=== PATIENT | female | born 1955 | race Caucasian/White ===

== ENCOUNTER 2023-02-04 19:58 | Emergency (ER) | payer MEDICARE, MEDICAID, SELFPAY ==
[2023-02-04] VITALS (24 sets, daily range): BP systolic 125–154; BP diastolic 80–84; PULSE 54–77; RESP 16–30; TEMP 36.5; O2SAT 90–97; BMI 39.4
--- NOTE | 2023-02-04 20:13 | ED.AMS1 ---
HPI - Altered Mental Status General Chief Complaint: Altered Mental Status Stated Complaint: ALTERED MENTAL STATUS Time Seen by Provider: 02/04/23 20:12 Source: patient Mode of arrival: ambulance Related Data Allergies Allergy/AdvReac Type Severity Reaction Status Date / Time No Known Drug Allergies Allergy Verified 02/04/23 20:01 Exam Constitutional Vital Signs - 24 hr 02/04/23 20:01 Temperature 97.7 F Pulse Rate [Monitor] 74 Respiratory Rate 26 H Blood Pressure [Left Arm] 125/84 H Pulse Oximetry 97 Oxygen Delivery Method Nasal Cannula Oxygen Delivery Flow Rate 2 Course Vital Signs Vital signs: Vital Signs Temperature 97.7 F 02/04/23 20:01 Pulse Rate 74 02/04/23 20:01 Respiratory Rate 26 H 02/04/23 20:01 Blood Pressure 125/84 H 02/04/23 20:01 Pulse Oximetry 97 02/04/23 20:01 Oxygen Delivery Method Nasal Cannula 02/04/23 20:01 Oxygen Delivery Flow Rate 2 02/04/23 20:01 Temperature 97.7 F 02/04/23 20:01 Pulse Rate 74 02/04/23 20:01 Respiratory Rate 26 H 02/04/23 20:01 Blood Pressure 125/84 H 02/04/23 20:01 Pulse Oximetry 97 02/04/23 20:01 Oxygen Delivery Method Nasal Cannula 02/04/23 20:01 Oxygen Delivery Flow Rate 2 02/04/23 20:01 Discharge Plan Discharge Chief Complaint: Altered Mental Status Referrals: Aj Vyas MD [Primary Care Provider] - 1 week
--- NOTE | 2023-02-04 20:19 | ECG_ITS ---
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
--- NOTE | 2023-02-04 20:19 | XR_ITS ---
The [address] [address] Patient Name: JELENA RAMIREZ MRN: [id number] date: 1955 Sex: F Assigned Patient Location: ER Current Patient Location: ED.MAIN Accession/Order Number: [id number] Exam Date: 02/04/2023 20:50 Report Date: 02/04/2023 22:30 At the request of: BRYN SAPP Procedure: XR chest 1V EXAM: XR chest 1V REASON FOR EXAM: Female, 67 years, Cough. TECHNIQUE: A single AP view of the chest is performed. COMPARISON: 11/10/2022. FINDINGS: Cardiac monitoring leads project over the chest. The lungs are expanded and clear. Normal pleura. Normal size heart. Normal mediastinum and jeet. Normal visualized pulmonary arteries. Normal visualized aortic arch and descending thoracic aorta. Normal visualized thoracic spine. Normal visualized ribs, clavicles, and shoulders. There is no demonstrated abnormality of the visualized soft tissue structures of the upper abdomen. IMPRESSION: Normal examination of the chest. Electronically authenticated by: GRISEL DURON Date: 02/04/2023 22:30
--- NOTE | 2023-02-04 20:24 | PC.NURSE ---
Addendum entered by Tiffany Tran 02/04/23 20:29: Patient states she has been sleeping all day, when asked if this is normal for her she states it is sometimes, she has been tired lately. patient states she was just at her neighbors [facility] recently and that she has seen her neighbors. Original Note: patients neighbor called PD for wellness check on patient. states he had not seen the patient in a few days. EMS reports patient was A&o x3 only. Patient arrived at ED. patient able to state: name, birthday, todays date and year, president without assistance. patient able to ambulate don her own. Patient states she did not want to come to ED but was persuaded by EMS. Patient denies pain. states she does live alone, patient denies needs at this time. physician aware. no deficits noticed at this time.
--- NOTE | 2023-02-04 20:33 | PC.NURSE ---
patient states she has COPD. wears 2 liters at home. patient was 89 and labored on room air. O2 initiated physician aware
--- NOTE | 2023-02-04 20:35 | PC.NURSE ---
patient states she does do home breathing treatments at times. patient has frequent cough, states she feels like she is short of breath at times. patient moved to high fowlers position. physician notified, asked if patient could have breathing treatment, patient has bilater diminished lung sounds with expiratory wheezes, states when she was set to high fowlers she was breathing a little easier
[2023-02-04 20:45] LABS: ABG PCO2 40.7 mmHg (35.0-45.0); Allen Test POSITIVE (POSITIVE); Base Excess ABG 2.6 mmol/L (-2.0-2.0); HCO3 ABG 26.9 mmol/L (22.0-26.0); Oxygen Saturation ABG 96.2 %; PO2 ABG 94.9 mmHg (80.0-100.0); pH ABG 7.429 (7.350-7.450)
[2023-02-04 20:46] LABS: Fractionated Inspired Oxygen 28 %; Liters per Minute 2; O2 Mode NASAL CANNULA; Puncture Site LR
[2023-02-04] MEDS: IPRATROPIUM/ALBUTEROL SULFATE 3 ML AMPUL.NEB IH (20:50)
[2023-02-04 20:57] LABS: Basophils Percent Auto 0.5 % (0.2-2.0); Eosinophils Absolute Auto 0.2 10^3/uL (0.0-0.7); Eosinophils Percent Auto 2.4 % (0.9-7.0); Hemoglobin 13.5 g/dL (12.0-16.0); Immature Granulocytes Abs Auto 0.03 10^3/uL (0.00-0.03); Immature Granulocytes Pct Auto 0.4 % (0.0-0.5); Lymphocytes Absolute Auto 2.3 10^3/uL (1.2-3.8); Lymphocytes Percent Auto 27.8 % (20.5-60.0); Mean Corpuscular HGB Conc 32.9 g/dL (29.9-35.2); Mean Corpuscular Hemoglobin 29.5 pg (26.7-34.0); Mean Corpuscular Volume 89.5 fL (81.0-99.0); Mean Platelet Volume 10.2 fL (9.5-13.5); Monocytes Absolute Auto 0.7 10^3/uL (0.3-0.8); Monocytes Percent Auto 7.7 % (1.7-12.0); Neutrophils Absolute Auto 5.2 10^3/uL (1.4-6.5); Neutrophils Percent Auto 61.2 % (43.0-75.0); Platelet Count 293 10^3/uL (150-450); Red Blood Count 4.58 10^6/uL (4.20-5.40); Red Cell Distribution Width 13.6 % (11.0-15.0); White Blood Count 8.4 10^3/uL (4.0-11.0)
[2023-02-04 21:09] LABS: Alanine Aminotransferase 30 U/L (14-59); Albumin Globulin Ratio 0.8; Albumin Level 3.2 g/dL (3.4-5.0); Alkaline Phosphatase 102 U/L (46-116); Anion Gap 12.3; Aspartate Amino Transferase 21 U/L (15-37); BUN Creatinine Ratio 9.7; Bilirubin Total 0.6 mg/dL (0.2-1.0); Calcium 8.9 mg/dL (8.5-10.1); Carbon Dioxide 26.8 mmol/L (21.0-32.0); Chloride 105 mmol/L (98-107); Estimated GFR (African America >60 (>=60); Estimated GFR (Non-African Ame >60 (>=60); Globulin 3.9 g/dL; Glucose 107 mg/dL (74-106); Potassium 3.1 mmol/L (3.5-5.1); Sodium 141 mmol/L (136-145); Total Protein 7.1 g/dL (6.4-8.2)
[2023-02-04] MEDS: METHYLPREDNISOLONE SOD SUCC PF 125 MG/2 ML VIAL IVP (21:14)
--- NOTE | 2023-02-04 22:50 | ED.AMS1 ---
HPI - Altered Mental Status General Chief Complaint: Altered Mental Status Stated Complaint: ALTERED MENTAL STATUS Time Seen by Provider: 02/04/23 20:12 Source: patient Mode of arrival: ambulance History of Present Illness HPI narrative: the patient is calm by the EMS after her neighbor called the ambulance because the patient did not show up for the last few days, was presented to patient house she did not have any complaint but they brought her to the Emergency Room for evaluation she does have a history of cough and she also have a history of chronic obstructive pulmonary disease, the cough is productive of whitish sputum The patient denies any chest pain nausea vomiting or any other complaints and she also denies any difficulty breathing Review of systems otherwise negative Related Data Allergies Allergy/AdvReac Type Severity Reaction Status Date / Time No Known Drug Allergies Allergy Verified 02/04/23 20:01 Review of Systems ROS Status of ROS 10 or more systems reviewed and unremarkable except as noted in history and below Exam Narrative Exam Narrative: Nurses notes and vital signs reviewed and patient is not hypoxic. General: Well-appearing and in no apparent distress. Skin: Warm, dry, no pallor noted. No rash. Head: Normocephalic, atraumatic. Neck: Supple, non-tender. Eye: Pupils are equal, round and EOMI. No scleral icterus. Ears, Nose, Mouth, and Throat: TM are clear, no nasal mucosal hypertrophy. Oral mucosa is moist, no posterior oropharynx erythema, uvula is mid-line Cardiovascular: Regular Rate and Rhythm without murmur, gallop or rub. Respiratory: No accessory muscle use or respiratory distress. Lungs decrease air entry into the bases no wheezes no rhonchi Chest Wall: no tenderness Back: No midline thoracic or lumbar vertebral tenderness. No CVA tenderness Musculoskeletal: normal ROM, no calf or popliteal tenderness, no lower extremity edema/swelling GI: Abdomen is soft, non-distended. Normal bowel sounds. No masses appreciated. No tenderness to palpation. No rebound, guarding, or rigidity noted. Neurological: A&O x4. No cranial nerve dysfunction observed. No truncal ataxia. Moves all extremities. Sensation intact. Psychiatric: Cooperative and interactive. Normal mood and affect. Constitutional Vital Signs - 24 hr 02/04/23 20:01 02/04/23 20:22 02/04/23 20:50 Temperature 97.7 F Pulse Rate Pulse Rate [Monitor] 74 75 Respiratory Rate 26 H 22 Blood Pressure Blood Pressure [Left Arm] 125/84 H Pulse Oximetry 97 96 95 Oxygen Delivery Method Nasal Cannula Nasal Cannula Nasal Cannula Oxygen Delivery Flow Rate 2 2 2 02/04/23 20:05 02/04/23 20:12 02/04/23 20:20 Temperature Pulse Rate 71 74 Pulse Rate [Monitor] Respiratory Rate 18 Blood Pressure Blood Pressure [Left Arm] Pulse Oximetry 96 95 90 L Oxygen Delivery Method Oxygen Delivery Flow Rate 02/04/23 20:30 02/04/23 20:40 02/04/23 20:50 Temperature Pulse Rate 75 69 74 Pulse Rate [Monitor] Respiratory Rate 21 19 16 Blood Pressure Blood Pressure [Left Arm] Pulse Oximetry 96 96 Oxygen Delivery Method Oxygen Delivery Flow Rate 02/04/23 21:00 02/04/23 21:10 02/04/23 21:20 Temperature Pulse Rate 76 75 73 Pulse Rate [Monitor] Respiratory Rate 16 28 H 21 Blood Pressure Blood Pressure [Left Arm] Pulse Oximetry 97 95 Oxygen Delivery Method Oxygen Delivery Flow Rate 02/04/23 21:30 02/04/23 21:40 02/04/23 21:50 Temperature Pulse Rate 71 67 68 Pulse Rate [Monitor] Respiratory Rate 18 18 19 Blood Pressure Blood Pressure [Left Arm] Pulse Oximetry Oxygen Delivery Method Oxygen Delivery Flow Rate 02/04/23 23:21 02/04/23 22:00 02/04/23 22:10 Temperature Pulse Rate 68 65 Pulse Rate [Monitor] Respiratory Rate 18 30 H Blood Pressure Blood Pressure [Left Arm] Pulse Oximetry 92 L Oxygen Delivery Method Room Air Oxygen Delivery Flow Rate 02/04/23 22:20 02/04/23 22:30 02/04/23 22:40 Temperature Pulse Rate 74 63 68 Pulse Rate [Monitor] Respiratory Rate 17 27 H 17 Blood Pressure Blood Pressure [Left Arm] Pulse Oximetry Oxygen Delivery Method Oxygen Delivery Flow Rate 02/04/23 22:50 02/04/23 23:00 02/04/23 23:04 Temperature Pulse Rate 66 77 69 Pulse Rate [Monitor] Respiratory Rate 19 19 16 Blood Pressure Blood Pressure [Left Arm] Pulse Oximetry Oxygen Delivery Method Oxygen Delivery Flow Rate 02/04/23 23:07 Temperature Pulse Rate Pulse Rate [Monitor] Respiratory Rate Blood Pressure 154/80 H Blood Pressure [Left Arm] Pulse Oximetry Oxygen Delivery Method Oxygen Delivery Flow Rate Course Vital Signs Vital signs: Vital Signs Temperature 97.7 F 02/04/23 20:01 Pulse Rate 74 02/04/23 20:01 Respiratory Rate 26 H 02/04/23 20:01 Blood Pressure 125/84 H 02/04/23 20:01 Pulse Oximetry 97 02/04/23 20:01 Oxygen Delivery Method Nasal Cannula 02/04/23 20:01 Oxygen Delivery Flow Rate 2 02/04/23 20:01 Temperature 97.7 F 02/04/23 20:01 Pulse Rate 69 02/04/23 23:04 Respiratory Rate 16 02/04/23 23:04 Blood Pressure 154/80 H 02/04/23 23:07 Pulse Oximetry 92 L 02/04/23 23:21 Oxygen Delivery Method Room Air 02/04/23 23:21 Oxygen Delivery Flow Rate 2 02/04/23 20:50 MDM - Altered Mental Status MDM Narrative Medical decision making narrative: the patient she did not have any complaint upon presentation except for the cough she was oriented ?3 able to give us full history and denies any complaint except for the cough Chest x-ray showed no acute pathology and the CBC and chemistry were within normal she had a baseline chronic obstructive pulmonary disease and uses oxygen 2 L old time she also had ABG that shows adequate results The patient EKG was showing sinus rhythm with a heart rate of seventy-[address] elevation or depression The patient discharged home with a chronic obstructive pulmonary disease exacerbation bronchitis management of prednisone in addition to continuing her treatment The patient is to followup with primary care physician in next 2-3 days or to return to the emergency department should any of the signs or symptoms worsen or new symptoms develop. The patient agrees with the following Diagnosis and Treatment plan and the patient will be discharged home. Lab Data Labs: Lab Results 02/04/23 02/04/23 Range/Units 20:40 20:48 WBC 8.4 (4.0-11.0) 10^3/uL RBC 4.58 (4.20-5.40) 10^6/uL Hgb 13.5 (12.0-16.0) g/dL Hct 41.0 (36.0-48.0) % MCV 89.5 (81.0-99.0) fL MCH 29.5 (26.7-34.0) pg MCHC 32.9 (29.9-35.2) g/dL RDW 13.6 (11.0-15.0) % Plt Count 293 (150-450) 10^3/uL MPV 10.2 (9.5-13.5) fL Neut % (Auto) 61.2 (43.0-75.0) % Lymph % (Auto) 27.8 (20.5-60.0) % [place] % (Auto) 7.7 (1.7-12.0) % Eos % (Auto) 2.4 (0.9-7.0) % Baso % (Auto) 0.5 (0.2-2.0) % Neut # (Auto) 5.2 (1.4-6.5) 10^3/uL Lymph # (Auto) 2.3 (1.2-3.8) 10^3/uL [place] # (Auto) 0.7 (0.3-0.8) 10^3/uL Eos # (Auto) 0.2 (0.0-0.7) 10^3/uL Baso # (Auto) 0.0 (0.0-0.1) 10^3/uL Abs Immat Gran (auto) 0.03 (0.00-0.03) 10^3/uL Imm/Tot Granulo (auto) 0.4 (0.0-0.5) % Puncture Site Lr ABG pH 7.429 (7.350-7.450) ABG pCO2 40.7 (35.0-45.0) mmHg ABG pO2 94.9 (80.0-100.0) mmHg ABG HCO3 26.9 H (22.0-26.0) mmol/L ABG O2 Saturation 96.2 % ABG Base Excess 2.6 H (-2.0-2.0) mmol/L Dougie Test Positive (POSITIVE) O2 Liters/Min 2 FiO2 28 % Sodium 141 (136-145) mmol/L Potassium 3.1 L (3.5-5.1) mmol/L Chloride 105 (98-107) mmol/L Carbon Dioxide 26.8 (21.0-32.0) mmol/L Anion Gap 12.3 BUN 7.0 (7.0-18.0) mg/dL Creatinine 0.72 (0.55-1.02) mg/dL Est GFR ( Amer) >60 (>=60) Est GFR (Non-Af Amer) >60 (>=60) BUN/Creatinine Ratio 9.7 Glucose 107 H (74-106) mg/dL Calcium 8.9 (8.5-10.1) mg/dL Total Bilirubin 0.6 (0.2-1.0) mg/dL AST 21 (15-37) U/L ALT 30 (14-59) U/L Alkaline Phosphatase 102 (46-116) U/L Total Protein 7.1 (6.4-8.2) g/dL Albumin 3.2 L (3.4-5.0) g/dL Globulin 3.9 g/dL Albumin/Globulin Ratio 0.8 Discharge Plan Discharge Chief Complaint: Altered Mental Status Clinical Impression: Acute exacerbation of chronic obstructive pulmonary disease, Bronchitis Patient Disposition: Home, Self-Care Condition: Good Mode of Transportation: Private Vehicle Instructions: Hypokalemia (ED), Acute Bronchitis (ED), COPD (Chronic Obstructive Pulmonary Disease) (ED) Stand Alone Forms: Portal Instructions Referrals: Aj Vyas MD [Primary Care Provider] - 1 week Discharge Date/Time: 02/04/23 23:31
--- NOTE | 2023-02-04 23:21 | PC.NURSE ---
unknown when patient discontinued her own o2. patient states she was feeling better since recieving breathing treatment. states she only uses O2 at home when she needs it. no longer labored
[2023-02-04] MEDS: POTASSIUM CHLORIDE 10 MEQ ER TABLET 40 MEQ PO (23:28)
--- NOTE | 2023-03-28 12:55 | PC.NURSE ---
[facility] CALLED TO CLARIFY PRESCRIPTION STRENGTH OF PREDNISONE WRITTEN FROM JANUARY 2023. DR SAPP IS NOT PRESENT TODAY, UNABLE TO FIND STRENGTH IN DOCUMENTATION.CLARIFIED WITH DR QUIROZ, TO CANCEL PRESCRIPTION AND FOLLOW UP WITH PRIMARY DOCTOR. PT WAS BEING TREATED FOR BRONCHITIS AT THE TIME (JANUARY).
== END 2023-02-04 23:31 | disposition home or self-care (01) ==
PROVIDERS: Emergency Provider Emergency Medicine; PCP Family Medicine
DX: J44.1 Chronic obstructive pulmonary disease with (acute) exacerbation (principal)
CPT/HCPCS: 36415; 36600; 71045; 80053; 81003; 82805; 85025; 93005; 94640; 96374; 99285; J2930

== ENCOUNTER 2023-04-26 11:40 | Emergency (ER) | payer MEDICARE, MEDICAID, SELFPAY ==
[2023-04-26] VITALS (23 sets, daily range): BP systolic 112; BP diastolic 70; PULSE 60–98; RESP 15–26; O2SAT 93–98; BMI 43.3
--- NOTE | 2023-04-26 12:01 | ECG_ITS ---
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
--- NOTE | 2023-04-26 12:02 | XR_ITS ---
The [address] [address] Patient Name: JELENA RAMIREZ MRN: [id number] date: 1955 Sex: F Assigned Patient Location: ER Current Patient Location: ER Accession/Order Number: [id number] Exam Date: 04/26/2023 13:20 Report Date: 04/26/2023 15:00 At the request of: BRYN SAPP Procedure: XR chest 1V EXAMINATION: XR chest 1V 04/26/2023 11:58 AM PDT HISTORY: cp TECHNIQUE: Single frontal view of the chest acquired. COMPARISONS: Chest x-ray 02/04/2023. FINDINGS: Lines/tubes/other: None. Heart and mediastinum: The heart and the mediastinum are within normal limits for technique. Bones: No acute osseous abnormality. Lungs: The lungs are clear. There is no evidence of pneumonia or pulmonary edema. Pleura: There is no significant pleural effusion or pneumothorax. Other: None. XR/XR chest 1V IMPRESSION: No acute cardiopulmonary abnormality. Electronically authenticated by: RUBEN STONE Date: 04/26/2023 15:00
--- NOTE | 2023-04-26 12:11 | ED_ITS ---
HPI - General Adult General Chief complaint: Overdose Stated complaint: OVERDOSE Time Seen by Provider: 04/26/23 12:01 Mode of arrival: ambulance History of Present Illness HPI narrative: The patient presented to us by the EMS after her neighbor was concerned that she may be has been taking her anxiety medication with that she need to take, the patient went seen by the EMS she was awake no decreased level of consciousness, the patient oriented x3 , and the patient denying overdosing on her medication she mentioned that she only take her Xanax as prescribed 3 times a day The patient initially mentioned having some chest pain although after a while in the ER she denied it and she did not want to give any more details. No nausea no vomiting the difficulty breathing and the patient does not want to be in the ER Related Data Home Medications Medication Instructions Recorded Confirmed alprazolam 0.5 mg tablet 0.5 mg PO TID PRN anxiety 04/26/23 04/26/23 amiodarone 200 mg tablet 200 mg PO DAILY 04/26/23 04/26/23 apixaban 5 mg tablet (Eliquis) 5 mg PO BID 04/26/23 04/26/23 atorvastatin 40 mg tablet 40 mg PO QPM 04/26/23 04/26/23 buspirone 30 mg tablet 30 mg PO BID 04/26/23 04/26/23 cholestyramine (with sugar) 4 gram 1 ea PO BID 04/26/23 04/26/23 powder for susp in a packet diphenoxylate-atropine 2.5 1 tab PO Q6H PRN diarrhea 04/26/23 04/26/23 mg-0.025 mg tablet famotidine 20 mg tablet 20 mg PO QPM 04/26/23 04/26/23 furosemide 20 mg tablet 20 mg PO DAILY PRN edema 04/26/23 04/26/23 insulin glargine 100 unit/mL (3 5 unit subcut QPM 04/26/23 04/26/23 mL) subcutaneous pen (Lantus Solostar U-100 Insulin) levothyroxine 50 mcg tablet 50 mcg PO DAILY 04/26/23 04/26/23 metoprolol tartrate 25 mg tablet 25 mg PO BID 04/26/23 04/26/23 paroxetine HCl 30 mg tablet 30 mg PO DAILY 04/26/23 04/26/23 potassium chloride 20 mEq 20 meq PO BID 04/26/23 04/26/23 tablet,extended release(part/cryst) pregabalin 100 mg capsule 100 mg PO BID 04/26/23 04/26/23 quetiapine 100 mg tablet 100 mg PO QPM 04/26/23 04/26/23 sucralfate 1 gram tablet 1 g PO Q6H 04/26/23 04/26/23 tizanidine 4 mg tablet 4 mg PO Q8H PRN muscle spasticity 04/26/23 04/26/23 trazodone 100 mg tablet 100 mg PO QPM 04/26/23 04/26/23 Previous Rx's Medication Instructions Recorded prednisone 50 mg tablet 50 mg PO DAILY 3 days #3 tabs 04/26/23 Allergies Allergy/AdvReac Type Severity Reaction Status Date / Time No Known Drug Allergies Allergy Verified 02/04/23 20:01 Review of Systems ROS Status of ROS 10 or more systems reviewed and unremarkable except as noted in history and below [facility] Medical History (Updated 04/26/23 @ 15:16 by Kylah Pham MD) Exam Narrative Exam Narrative: Nurses notes and vital signs reviewed and patient is not hypoxic. General: Well-appearing and in no apparent distress. Skin: Warm, dry, no pallor noted. No rash. Head: Normocephalic, atraumatic. Neck: Supple, non-tender. Eye: Pupils are equal, round and EOMI. No scleral icterus. Ears, Nose, Mouth, and Throat: TM are clear, no nasal mucosal hypertrophy. Oral mucosa is moist, no posterior oropharynx erythema, uvula is mid-line Cardiovascular: Regular Rate and Rhythm without murmur, gallop or rub. Respiratory: No accessory muscle use or respiratory distress. Lungs are clear to auscultation, no wheezing, rales or rhonchi Chest Wall: no tenderness Back: No midline thoracic or lumbar vertebral tenderness. No CVA tenderness Musculoskeletal: normal ROM, no calf or popliteal tenderness, no lower extremity edema/swelling GI: Abdomen is soft, non-distended. Normal bowel sounds. No masses appreciated. No tenderness to palpation. No rebound, guarding, or rigidity noted. Neurological: A&O x4. No cranial nerve dysfunction observed. No truncal ataxia. Moves all extremities. Sensation intact. Psychiatric: Cooperative and interactive. Normal mood and affect. Constitutional Vital Signs, click to edit/add: Last Vital Signs Pulse 62 04/26/23 14:40 Resp 25 H 04/26/23 12:30 BP 112/70 04/26/23 11:45 Pulse Ox 95 04/26/23 12:30 O2 Del Method Room Air 04/26/23 12:03 Course Vital Signs Vital signs: Vital Signs Pulse Rate 74 04/26/23 11:45 Respiratory Rate 20 04/26/23 11:45 Blood Pressure 112/70 04/26/23 11:45 Pulse Oximetry 97 04/26/23 11:45 Oxygen Delivery Method Room Air 04/26/23 11:45 Pulse Rate 62 04/26/23 14:40 Respiratory Rate 25 H 04/26/23 12:30 Blood Pressure 112/70 04/26/23 11:45 Pulse Oximetry 95 04/26/23 12:30 Oxygen Delivery Method Room Air 04/26/23 12:03 Medical Decision Making MDM Narrative Medical decision making narrative: The patient EKG upon presentation showing sinus rhythm with a heart rate of [address] elevation or depression The patient denies being suicidal or homicidal or any intention to harm herself she mentioned that she only took the medication as prescribed. The patient right this moment is not sedated and giving a full history The patient chest x-ray showed no acute pathology her blood work-up showed some acute kidney injury and I did speak with her that she need to be hydrated well, this is the second time the patient comes to us because his and her neighbor was worried The patient also had mild elevation of the liver enzymes that need to follow-up with her primary care doctor as outpatient The patient was provided with 1 breathing treatment in the ER as supportive care, no new symptoms of cough or difficulty breathing and she was denying any chest pain. I did notice that the patient cough was significant I did provide her with prednisone in addition to continue her breathing treatment The patient is to follow up with primary care physician in next 2-3 days or to return to the emergency department should any of the signs or symptoms worsen or new symptoms develop. The patient agrees with the following Diagnosis and Treatment plan and the patient will be discharged home. The patient also was instructed about the importance of not taking her medication for anxiety when she is asleep to avoid side effects Lab Data Labs: Lab Results 04/26/23 04/26/23 Range/Units 12:23 13:10 WBC 6.5 (4.0-11.0) 10^3/uL RBC 4.59 (4.20-5.40) 10^6/uL Hgb 14.1 (12.0-16.0) g/dL Hct 44.0 (36.0-48.0) % MCV 95.9 (81.0-99.0) fL MCH 30.7 (26.7-34.0) pg MCHC 32.0 (29.9-35.2) g/dL RDW 14.9 (11.0-15.0) % Plt Count 248 (150-450) 10^3/uL MPV 10.2 (9.5-13.5) fL Neut % (Auto) 77.4 H (43.0-75.0) % Lymph % (Auto) 14.9 L (20.5-60.0) % [place] % (Auto) 6.7 (1.7-12.0) % Eos % (Auto) 0.2 L (0.9-7.0) % Baso % (Auto) 0.5 (0.2-2.0) % Neut # (Auto) 5.0 (1.4-6.5) 10^3/uL Lymph # (Auto) 1.0 L (1.2-3.8) 10^3/uL [place] # (Auto) 0.4 (0.3-0.8) 10^3/uL Eos # (Auto) 0.0 (0.0-0.7) 10^3/uL Baso # (Auto) 0.0 (0.0-0.1) 10^3/uL Abs Immat Gran (auto) 0.02 (0.00-0.03) 10^3/uL Imm/Tot Granulo (auto) 0.3 (0.0-0.5) % PT 10.3 (9.0-11.6) sec INR 0.97 Sodium 141 (136-145) mmol/L Potassium 3.3 L (3.5-5.1) mmol/L Chloride 104 (98-107) mmol/L Carbon Dioxide 31.2 (21.0-32.0) mmol/L Anion Gap 9.1 BUN 13.0 (7.0-18.0) mg/dL Creatinine 1.96 H (0.55-1.02) mg/dL Est GFR ( Amer) 31 L (>=60) Est GFR (Non-Af Amer) 26 L (>=60) BUN/Creatinine Ratio 6.6 Glucose 129 H (74-106) mg/dL Calcium 8.7 (8.5-10.1) mg/dL Total Bilirubin 0.7 (0.2-1.0) mg/dL AST 174 H (15-37) U/L ALT 208 H (14-59) U/L Alkaline Phosphatase 177 H (46-116) U/L Troponin I High Sens 46.1 (4.0-51.3) pg/mL Total Protein 7.2 (6.4-8.2) g/dL Albumin 3.7 (3.4-5.0) g/dL Globulin 3.5 g/dL Albumin/Globulin Ratio 1.1 Salicylates 3.0 (<=19.9) mg/dL Urine Opiates Screen Negative (NEGATIVE) Ur Buprenorphine Scrn Negative (NEGATIVE) Ur Oxycodone Screen Negative (NEGATIVE) Urine Methadone Screen Negative (NEGATIVE) Ur Propoxyphene Screen Negative (NEGATIVE) Acetaminophen <2.0 L (10.0-30.0) ug/mL Ur Barbiturates Screen Negative (NEGATIVE) U Tricyclic Antidepress Negative (NEGATIVE) Ur Phencyclidine Scrn Negative (NEGATIVE) Ur Amphetamines Screen Negative (NEGATIVE) U Methamphetamines Scrn Negative (NEGATIVE) U Benzodiazepines Scrn Positive A (NEGATIVE) Urine Cocaine Screen Negative (NEGATIVE) U Cannabinoids Screen Negative (NEGATIVE) Ethanol Quant <3 mg/dL Discharge Plan Discharge Chief Complaint: Overdose Clinical Impression: Benzodiazepine causing adverse effect in therapeutic use, COPD exacerbation Patient Disposition: Home, Self-Care Time of Disposition Decision: 15:15 Condition: Good Mode of Transportation: Private Vehicle Prescriptions / Home Meds: New prednisone 50 mg tablet 50 mg PO DAILY 3 Days Qty: 3 0RF No Action alprazolam 0.5 mg tablet 0.5 mg PO TID PRN (Reason: anxiety) amiodarone 200 mg tablet 200 mg PO DAILY Eliquis 5 mg tablet 5 mg PO BID atorvastatin 40 mg tablet 40 mg PO QPM buspirone 30 mg tablet 30 mg PO BID cholestyramine (with sugar) 4 gram powder in packet 1 ea PO BID diphenoxylate-atropine 2.5-0.025 mg tablet 1 tab PO Q6H PRN (Reason: diarrhea) famotidine 20 mg tablet 20 mg PO QPM furosemide 20 mg tablet 20 mg PO DAILY PRN (Reason: edema) insulin glargine [Lantus Solostar U-100 Insulin] 100 unit/mL (3 mL) insulin pen 5 unit SUBCUT QPM levothyroxine 50 mcg tablet 50 mcg PO DAILY metoprolol tartrate 25 mg tablet 25 mg PO BID paroxetine HCl 30 mg tablet 30 mg PO DAILY potassium chloride 20 mEq tablet,ER particles/crystals 20 meq PO BID pregabalin 100 mg capsule 100 mg PO BID quetiapine 100 mg tablet 100 mg PO QPM sucralfate 1 gram tablet 1 g PO Q6H tizanidine 4 mg tablet 4 mg PO Q8H PRN (Reason: muscle spasticity) trazodone 100 mg tablet 100 mg PO QPM Instructions: Alprazolam (By mouth) Stand Alone Forms: Portal Instructions Referrals: Aj Vyas MD [Primary Care Provider] - 1 week
[2023-04-26 12:38] LABS: Basophils Percent Auto 0.5 % (0.2-2.0); Eosinophils Percent Auto 0.2 % (0.9-7.0); Hemoglobin 14.1 g/dL (12.0-16.0); Immature Granulocytes Abs Auto 0.02 10^3/uL (0.00-0.03); Immature Granulocytes Pct Auto 0.3 % (0.0-0.5); Lymphocytes Percent Auto 14.9 % (20.5-60.0); Mean Corpuscular Hemoglobin 30.7 pg (26.7-34.0); Mean Corpuscular Volume 95.9 fL (81.0-99.0); Mean Platelet Volume 10.2 fL (9.5-13.5); Monocytes Absolute Auto 0.4 10^3/uL (0.3-0.8); Monocytes Percent Auto 6.7 % (1.7-12.0); Neutrophils Percent Auto 77.4 % (43.0-75.0); Platelet Count 248 10^3/uL (150-450); Red Blood Count 4.59 10^6/uL (4.20-5.40); Red Cell Distribution Width 14.9 % (11.0-15.0); White Blood Count 6.5 10^3/uL (4.0-11.0)
[2023-04-26 12:56] LABS: Alanine Aminotransferase 208 U/L (14-59); Albumin Globulin Ratio 1.1; Albumin Level 3.7 g/dL (3.4-5.0); Alkaline Phosphatase 177 U/L (46-116); Anion Gap 9.1; Aspartate Amino Transferase 174 U/L (15-37); BUN Creatinine Ratio 6.6; Bilirubin Total 0.7 mg/dL (0.2-1.0); Calcium 8.7 mg/dL (8.5-10.1); Carbon Dioxide 31.2 mmol/L (21.0-32.0); Chloride 104 mmol/L (98-107); Estimated GFR (African America 31 (>=60); Estimated GFR (Non-African Ame 26 (>=60); Ethanol <3 mg/dL; Globulin 3.5 g/dL; Glucose 129 mg/dL (74-106); Potassium 3.3 mmol/L (3.5-5.1); Sodium 141 mmol/L (136-145); Total Protein 7.2 g/dL (6.4-8.2); Troponin I High Sensitivity 46.1 pg/mL (4.0-51.3)
[2023-04-26 12:57] LABS: Acetaminophen <2.0 ug/mL (10.0-30.0)
[2023-04-26 13:01] LABS: INR 0.97; Prothrombin Time 10.3 sec (9.0-11.6)
[2023-04-26] MEDS: 0.9 % SODIUM CHLORIDE 1,000 ML 1000 ML IV (13:33)
[2023-04-26 14:19] LABS: Amphetamine Screen Urine NEGATIVE (NEGATIVE); Barbiturates Screen Urine NEGATIVE (NEGATIVE); Benzodiazepines Screen Urine POSITIVE (NEGATIVE); Buprenorphine Screen Urine NEGATIVE (NEGATIVE); Cannabinoid Screen Urine NEGATIVE (NEGATIVE); Cocaine Screen Urine NEGATIVE (NEGATIVE); Methadone Screen Urine NEGATIVE (NEGATIVE); Methamphetamines Screen Urine NEGATIVE (NEGATIVE); Opiate Screen Urine NEGATIVE (NEGATIVE); Oxycodone Screen Urine NEGATIVE (NEGATIVE); Phencyclidine Screen Urine NEGATIVE (NEGATIVE); Tricyclic Antidepressant Urine NEGATIVE (NEGATIVE)
[2023-04-26] MEDS: PREDNISONE 20 MG TABLET 40 MG PO (15:26)
[2023-04-26] MEDS: IPRATROPIUM/ALBUTEROL SULFATE 3 ML AMPUL.NEB IH (15:31)
--- NOTE | 2023-04-26 15:47 | SWNOTE1 ---
CHERISE spoke with nursing in regards to pt and pt taking too much xanax at home. Pt lives at home alone, has boyfriend, daughter, and sister. SW spoke with pt in room, pt was closing eyes and did state she is tired. Pt prescribed xanax from Dr. Vyas. She took too many today. Pt voices her daughter/sister come over daily to check on her. Pt's sister is picking her up, she is discharged today. CHERISE expressed to pt that it would be beneficial for pt to have a pill box to assist with when she should take meds. Pt does not drive, SW asked how she gets food in home? After asking a few times she stated her sister gets her groceries. SW to call sister.
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
== END 2023-04-26 16:35 | disposition home or self-care (01) ==
PROVIDERS: Emergency Provider Emergency Medicine; PCP Family Medicine
DX: T88.7XXA Unspecified adverse effect of drug or medicament, initial encounter (principal); T42.4X5A Adverse effect of benzodiazepines, initial encounter; J44.1 Chronic obstructive pulmonary disease with (acute) exacerbation; Z79.4 Long term (current) use of insulin; F41.9 Anxiety disorder, unspecified
CPT/HCPCS: 36415; 71045; 80053; 80179; 80307; 80320; 80329; 84484; 85025; 85610; 93005; 94640; 99285

== ENCOUNTER 2023-04-26 18:08 | Inpatient (IN) | payer MEDICARE, MEDICAID, SELFPAY ==
[2023-04-26] VITALS (42 sets, daily range): BP systolic 128–184; BP diastolic 71–103; PULSE 47–75; RESP 5–30; TEMP 36.7; O2SAT 76–100; BMI 33.9
--- NOTE | 2023-04-26 18:14 | ECG_ITS ---
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
--- NOTE | 2023-04-26 18:51 | PC.NURSE ---
pt sx not consistent -- pt will only answer questions she wants to answer. otherwise she becomes aggressive and yells when question is repeated. pt was in ER for this from possibly taking 3 xanax. pt sister called squad when she brought her home and pt was sitting there just moaning. seems to possibly be behavioral.
--- NOTE | 2023-04-26 19:00 | CT_ITS ---
The [address] [address] Patient Name: JELENA RAMIREZ MRN: [id number] date: 1955 Sex: F Assigned Patient Location: ED.MAIN Current Patient Location: ED.MAIN Accession/Order Number: [id number] Exam Date: 04/26/2023 19:04 Report Date: 04/26/2023 20:12 At the request of: RM PENA Procedure: CT head/brain wo con EXAM: CT head/brain diaz con HISTORY: Altered mental status. TECHNIQUE: Axial CT scans through the head were obtained without IV contrast administration. Dose reduction techniques were achieved by using: automated exposure control and/or adjustment of mA and /or kV according to patient size and/or use of iterative reconstruction technique. COMPARISON: 11/10/2022. FINDINGS: The cerebral hemispheres have normal white and damon matter and corticomedullary differentiation. To the limit of CT, the posterior fossa appears unremarkable. The ventricular system and cortical sulci are normal for the patient's age. No area of abnormal mass-effect or edema or intracranial hemorrhage. The visualized orbits show no abnormal mass. The visualized paranasal sinuses show no air-fluid level. Mastoid air cells are clear. CT/CT head/brain wo con IMPRESSION: No acute intracranial process. Electronically authenticated by: QING MENDEZ Date: 04/26/2023 20:12
[2023-04-26 19:03] LABS: Basophils Percent Auto 0.3 % (0.2-2.0); Eosinophils Percent Auto 0.4 % (0.9-7.0); Hematocrit 39.3 % (36.0-48.0); Hemoglobin 12.9 g/dL (12.0-16.0); Immature Granulocytes Abs Auto 0.03 10^3/uL (0.00-0.03); Immature Granulocytes Pct Auto 0.4 % (0.0-0.5); Lymphocytes Absolute Auto 1.1 10^3/uL (1.2-3.8); Lymphocytes Percent Auto 14.2 % (20.5-60.0); Mean Corpuscular HGB Conc 32.8 g/dL (29.9-35.2); Mean Corpuscular Hemoglobin 30.6 pg (26.7-34.0); Mean Corpuscular Volume 93.3 fL (81.0-99.0); Mean Platelet Volume 10.4 fL (9.5-13.5); Monocytes Absolute Auto 0.6 10^3/uL (0.3-0.8); Monocytes Percent Auto 7.4 % (1.7-12.0); Neutrophils Absolute Auto 5.7 10^3/uL (1.4-6.5); Neutrophils Percent Auto 77.3 % (43.0-75.0); Platelet Count 242 10^3/uL (150-450); Red Blood Count 4.21 10^6/uL (4.20-5.40); White Blood Count 7.4 10^3/uL (4.0-11.0)
[2023-04-26 19:19] LABS: Ammonia 18 umol/L (11-32)
[2023-04-26 19:26] LABS: Lactate/Lactic Acid 0.4 mmol/L (0.4-2.0)
[2023-04-26 19:33] LABS: Alanine Aminotransferase 167 U/L (14-59); Albumin Globulin Ratio 1.1; Albumin Level 3.5 g/dL (3.4-5.0); Alkaline Phosphatase 148 U/L (46-116); Anion Gap 10.6; Aspartate Amino Transferase 116 U/L (15-37); BUN Creatinine Ratio 10.6; Bilirubin Total 0.6 mg/dL (0.2-1.0); Carbon Dioxide 26.5 mmol/L (21.0-32.0); Chloride 104 mmol/L (98-107); Estimated GFR (African America 39 (>=60); Estimated GFR (Non-African Ame 32 (>=60); Ethanol <3 mg/dL; Globulin 3.2 g/dL; Glucose 105 mg/dL (74-106); Potassium 3.1 mmol/L (3.5-5.1); Salicylate 3.1 mg/dL (<=19.9); Sodium 138 mmol/L (136-145); Thyroid Stimulating Hormone 8.379 uIU/mL (0.358-3.740); Total Protein 6.7 g/dL (6.4-8.2)
[2023-04-26 19:36] LABS: Acetaminophen <2.8 ug/mL (10.0-30.0)
[2023-04-26 19:37] LABS: Troponin I High Sensitivity 70.1 pg/mL (4.0-51.3)
[2023-04-26 20:28] LABS: D Dimer 0.45 mg/L FEU (<=0.59)
[2023-04-26 21:42] LABS: Creatine Kinase 1143 U/L (26-192); Creatine Kinase MB 13.71 ng/mL (<=3.60); Troponin I High Sensitivity 72.9 pg/mL (4.0-51.3)
[2023-04-27] VITALS (139 sets, daily range): BP systolic 139–175; BP diastolic 69–84; PULSE 53–110; RESP 4–26; TEMP 36.4–36.9; O2SAT 89–99; BMI 34.9
[2023-04-27 00:14] LABS: Glucometer 123 mg/dL (74-106)
[2023-04-27 01:40] LABS: Troponin I High Sensitivity 84.1 pg/mL (4.0-51.3)
--- NOTE | 2023-04-27 02:01 | W.PM.TELEPN ---
Progress Note: Subjective Subjective Interval history: Patient is a 67-year-old female with history of COPD, hypothyroid, HTN, chronic A-fib on Eliquis, and HLD presenting with decreased responsiveness. Patient was seen in the ER yesterday afternoon for similar decreased responsiveness and it was reported that sister had expressed concern that patient may be taking more Xanax than she should be. Patient does live alone and reportedly takes Xanax 0.5 mg 3 times daily along with trazodone, tizanidine, and quetiapine. Per medical records, sisters concern the patient may be over medicated and may have excellently taken too much Xanax, although patient is denying at present time stating that she only takes it twice a day. When seen in the ER earlier yesterday afternoon, she did have a negative work-up including normal ABG, negative CXR. She was treated with nebs treatment and discharged on prednisone for a cough after being seen by manager social responsibility. Patient returned back to the ER yesterday evening approximately 4 to 5 hours after being discharged earlier in the day and was brought in by ambulance again for decreased responsiveness. Upon arrival to the ED, vital signs noted for BP 172/84, afebrile and initially noted 86% O2 RA which did improve to 95% on 2 L. Labs significant for K3.1, creatinine 1.61 from 1.96 earlier in the day which was previously normal in January. AST peaked at 174 yesterday, ALT 208, normal alk phos and total bilirubin. CK 1143, CK-MB 13.71, troponin 72.9 from 46 earlier in the day., And TSH 8.379. Rest of labs within normal limits including normal CBC, D-dimer, lactic acid, Tylenol, aspirin, and alcohol level negative. CXR and CT brain negative for acute findings. EKG NSR with nonspecific ST and T changes, rate [address] elevations. Patient is being admitted to the ICU for further work-up given altered state. History is primarily obtained via review of medical records and discussion with the ER physician. Patient is a poor historian. She initially did not answer any questions but after auscultation, reattempt made to obtain history and patient is only a little more awake but still minimally conversive, now knows that she is at [facility] and states the year is 2021. Per ED, patient was also a poor historian with provider and nursing staff both in the ER and on the floor but reportedly was more conversive and engaging in conversation with painting manager therefore there was some question if possible behavioral component to her altered state as well. Exam Constitutional Vital Signs, click to edit/add: Last Vital Signs Temp 98.1 F 04/27/23 00:07 Pulse 68 04/27/23 00:08 Resp 18 04/27/23 00:07 BP 163/74 H 04/27/23 00:07 Pulse Ox 95 04/27/23 00:07 O2 Del Method Room Air 04/27/23 00:07 O2 Flow Rate 4 04/26/23 19:37 Common normals: no apparent distress General appearance: lethargic Nutritional appearance: obese Orientation/consciousness: Yes lethargic HENMT Common normals: normocephalic and head/scalp atraumatic Eye Common normals: PERRL and EOMs intact bilaterally Respiratory Common normals: normal respiratory effort Auscultation: diminished lung sounds Cardio Common normals: regular rate, regular rhythm, S1 normal heart sound and S2 normal heart sound GI Auscultation: normoactive bowel sounds Palpation: soft Extremity Common normals: normal to inspection and full ROM Neuro Sensorium/orientation: oriented to person, oriented to place and lethargic Psych Speech: slow Mood and affect: depressed mood Memory/cognition: cognition grossly impaired Insight: limited Judgement: poor Progress Note: Objective Labs Labs: Short CBC 04/26/23 Range/Units 18:45 WBC 7.4 (4.0-11.0) 10^3/uL Hgb 12.9 (12.0-16.0) g/dL Hct 39.3 (36.0-48.0) % Plt Count 242 (150-450) 10^3/uL BMP 04/26/23 18:45 Sodium 138 Potassium 3.1 L Chloride 104 Carbon Dioxide 26.5 BUN 17.0 Creatinine 1.61 H Glucose 105 Calcium 8.0 L Cardiac Enzymes 04/26/23 Range/Units 21:06 Total Creatine Kinase 1143 H* (26-192) U/L CK-MB (CK-2) 13.71 H* (<=3.60) ng/mL Liver Function 04/26/23 Range/Units 18:45 Total Bilirubin 0.6 (0.2-1.0) mg/dL AST 116 H (15-37) U/L ALT 167 H (14-59) U/L Alkaline Phosphatase 148 H (46-116) U/L Albumin 3.5 (3.4-5.0) g/dL Imaging CT scan - head: Radiologist's impression: reji Chest x-ray: Radiologist's impression: reji Progress Note: A&P Assessment and Plan (1) Benzodiazepine causing adverse effect in therapeutic use: (2) Altered mental status: (3) High cholesterol: (4) Hypertension: (5) Diabetes: (6) Hypothyroidism: Plan AMS: Suspect secondary to overuse of benzodiazepine, and conjunction with antipsychotics and sedatives. Patient denies SI/HI. No obvious sign of infection but UA, urine drug screen still pending. Check ABG. Afebrile and no leukocytosis. CT brain negative. We will also need adjustment of levothyroxine once dose confirmed. If work-up remains negative and patient remains altered, may need to consider psych consult Benzodiazepine dependency: Appears to abuse Xanax as reported concerns by sister. Hold Xanax for now given altered mentation, significant lethargy, and hypoxia. Does not require reversal at this time as patient is arousable Acute on chronic hypoxic respiratory failure, with H/of COPD: Patient states that she uses O2 at home but unable to state how much. Noted 86% RA in ED, currently normal O2 sat on 2 L. Wean O2 as tolerated. CXR, D-dimer negative. Pending ABG. As needed nebs JAMILA: Noted in the setting of rhabdo. Pending UA. IVF ordered. Avoidance of nephrotoxic agents, renal dose meds Rhabdo: CK 1143. IV fluids, repeat labs in a.m. Elevated troponin: Suspect demand ischemia. Patient denies chest pain and no ischemia on EKG. Troponin worsened C/W initial troponin obtained yesterday morning but has been flat thus far. Continue to trend troponin, EKG in a.m. Telemetry monitoring Hypothyroid: Unsure if patient compliant. Patient was too lethargic and unable to disclose what meds she takes. May need dose adjustment once meds are confirmed by pharmacy in a.m. Elevated LFTs: Ordered alcohol level negative. IV fluids. Hold statin for now. Recheck LFTs in a.m. HTN, uncontrolled: As needed IV hydralazine for now. We will need to confirm home meds in a.m. HLD: Previously on Lipitor, will confirm dose in a.m. Hypokalemia: Replete K. Check BMP, mag in a.m. Chronic A-fib: Currently rate controlled. Continue amiodarone previous dose and Eliquis. Previously on beta-brisa but will be held given HR of 55. DM type II: SSI Tobacco abuse: Nicotine patch ordered DVT prophylaxis Eliquis Full code Telemedicine Attestation Telemedicine Attestation I conducted this encounter from [MD] via secure live, [id number] video conference with the patient, located at [facility] with [Baylee YUEN]. Prior to the interview, the risks and benefits of telemedicine were discussed with the patient and verbal consent was obtained.
[2023-04-27 02:15] LABS: Allen Test POSITIVE (POSITIVE); Base Excess ABG 2.7 mmol/L (-2.0-2.0); HCO3 ABG 28.5 mmol/L (22.0-26.0); Liters per Minute 1; O2 Mode NASAL CANNULA; PO2 ABG 47.7 mmHg (80.0-100.0); Puncture Site R RADIAL
[2023-04-27 02:16] LABS: ABG PCO2 52.8 mmHg (35.0-45.0)
[2023-04-27] MEDS: 0.9 % SODIUM CHLORIDE 1,000 ML 100 ML IV ×3 (02:17→20:34)
[2023-04-27] MEDS: POTASSIUM CHLORIDE 10 MEQ ER TABLET 40 MEQ PO (03:21)
[2023-04-27] MEDS: NICOTINE 21 MG PATCH TD (03:21)
[2023-04-27 05:37] LABS: Ethanol <3 mg/dL
[2023-04-27 05:38] LABS: Alanine Aminotransferase 164 U/L (14-59); Albumin Level 3.6 g/dL (3.4-5.0); Alkaline Phosphatase 150 U/L (46-116); Anion Gap 12.6; Aspartate Amino Transferase 107 U/L (15-37); Bilirubin Total 0.5 mg/dL (0.2-1.0); Calcium 8.4 mg/dL (8.5-10.1); Carbon Dioxide 27.7 mmol/L (21.0-32.0); Chloride 104 mmol/L (98-107); Estimated GFR (African America 41 (>=60); Estimated GFR (Non-African Ame 34 (>=60); Globulin 3.6 g/dL; Glucose 120 mg/dL (74-106); Magnesium 1.6 mg/dL (1.8-2.4); Potassium 3.3 mmol/L (3.5-5.1); Sodium 141 mmol/L (136-145); Total Protein 7.2 g/dL (6.4-8.2)
--- NOTE | 2023-04-27 06:00 | ECG_ITS ---
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
[2023-04-27 06:01] LABS: Creatine Kinase 947 U/L (26-192)
[2023-04-27 07:57] LABS: Glucometer 106 mg/dL (74-106)
[2023-04-27 08:07] LABS: Troponin I High Sensitivity 60.3 pg/mL (4.0-51.3)
--- NOTE | 2023-04-27 08:38 | CT_ITS ---
[address] [address] Patient Name: JELENA RAMIREZ MRN: [facility]:[id number] date: 1955 Sex: F Assigned Patient Location: ICU Current Patient Location: ICU Accession/Order Number: [id number] Exam Date: 04/27/2023 09:13 Report Date: 04/27/2023 09:56 At the request of: PIPER JAMES Procedure: CT abdomen pelvis wo con EXAM: CT abdomen pelvis wo con HISTORY: elevated LFT's, and renal function COMPARISON: None. TECHNIQUE: Axial CT images were obtained of the abdomen and pelvis without intravenous contrast. Multiplanar reconstructions were performed. ABDOMEN/PELVIS FINDINGS: Lower Chest: Bibasilar atelectasis or scarring present. Liver: Normal nonenhanced appearance and contour. Biliary/Gallbladder: Prior cholecystectomy. The common bile duct is prominent measuring 1.1 cm in diameter. Pancreas: Unremarkable. Spleen: Unremarkable. Adrenal Glands: Unremarkable. Kidneys: Unremarkable. No renal calculus or hydronephrosis. Gastrointestinal/Peritoneum: An anterior abdominal wall hernia is present measuring 8.4 x 4.7 cm containing a loop of the transverse colon. There is no evidence of obstruction at this time. A small focus of intussusception is present in the left upper quadrant small bowel loops best seen on image 45 of series 6 with mild upstream bowel dilatation measuring 2.9 cm in diameter. There is fluid throughout the colon, suggestive of diarrhea. Prior appendectomy. No free air or free fluid. Vascular: Mild to moderate scattered atherosclerotic calcifications are present. Lymph Nodes: No enlarged lymph nodes by CT size criteria. Pelvic Organs: Prior hysterectomy. Bladder: Unremarkable. Bones: No acute osseous abnormality. There is a dextroscoliosis of the lower lumbar spine with moderate to severe multilevel degenerative changes at this level. Soft tissues: Unremarkable. CT/CT abdomen pelvis wo con IMPRESSION: 1. Small focus of intussusception in the left upper quadrant small bowel loops with mild upstream bowel dilation, possibly due to a transient or mild partial small bowel obstruction. 2. Anterior abdominal wall hernia containing a loop of the transverse colon without evidence of obstruction at this time. 3. Fluid throughout the colon suggestive of diarrhea. 4. Prior cholecystectomy, appendectomy and hysterectomy. 5. Prominence of the common bile duct, which can be due to reservoir effect in the setting of prior cholecystectomy. Correlation with cholestasis labs is recommended. Electronically authenticated by: CONNIE ZAMORA Date: 04/27/2023 09:56
--- NOTE | 2023-04-27 08:38 | CT_ITS ---
The [address] [address] Patient Name: JELENA RAMIREZ MRN: [facility]:[id number] date: 1955 Sex: F Assigned Patient Location: ICU Current Patient Location: ICU Accession/Order Number: [id number] Exam Date: 04/27/2023 09:13 Report Date: 04/27/2023 09:47 At the request of: PIPER JAMES Procedure: CT chest wo con CT chest wo con, 04/27/2023 9:13 AM EDT INDICATION: Hypoxia, AMS COMPARISON: Radiograph the chest 04/26/2023, CT angiography of the chest 12/17/2015 TECHNIQUE: Thin-section axial CT images of the chest were acquired without contrast. Supplemental 2D reformatted images were generated and reviewed as needed. Dose reduction techniques were achieved by using automated exposure control and/or adjustment of mA and/or kV according to patient size and/or use of iterative reconstruction technique. FINDINGS: Heart is upper limits of normal for size. No pericardial effusion. Calcified at the cirrhotic change within a normal caliber aorta. No mediastinal, hilar or axillary lymphadenopathy. Subsegmental atelectasis within the lower lobes bilaterally. Small focus of consolidation at the left lung base. No pleural effusion. No pneumothorax. 2 mm nodule right upper lobe (5, 28) The upper abdomen is grossly unremarkable on a noncontrast scan. ACDF lower cervical spine. No acute fracture or dislocation. CT/CT chest wo con IMPRESSION: 1. No acute cardiopulmonary process. Electronically authenticated by: KATHRIN GANDHI Date: 04/27/2023 09:47
--- NOTE | 2023-04-27 08:42 | PM.HP ---
H&P: HPI History of Present Illness Chief complaint: Overdose Narrative: patient is a 67-year-old female with past medical history of chronic obstructive pulmonary disease requiring oxygen therapy, hypothyroidism, hypertension, chronic atrial fibrillation on I will request, hyperlipidemia who presented to the Emergency Room a few times over the course of this week for altered mental status. Last night she was brought in by sister according to Emergency Room notes. It is presumed that her sister she has been taking more Xanax that she has been prescribed. Patient was brought in by ambulance for decreased responsiveness. Patient was found to have elevated liver function tests, alkaline phosphatase, normal total bilirubin, elevated creatinine kinase levels, elevated troponin and thyroid-stimulating hormone. She was also hypoxic but not wearing her home oxygen and seemed to recover nicely on 2 L nasal cannula. She was then admitted to the hospitalist for further workup. This morning on admission exam patient is alert to person and place, she said she is just overall tired but denies any other issues. No one else is at bedside for any further history. Review of Systems ROS Narrative ROS: a complete review of systems were reviewed with patient and are positive as below or listed in History of Chief Complaint. General: no fever, chills, night sweats Head: no headache, trauma, visual changes, nausea or vomiting Skin: no reported rashes, itching or sores Eyes: no blurriness of vision Ears: no reported hearing loss, vertigo, earache, or tinnitus Throat: no sore throat, hoarseness, swelling of neck, or tongue pain Heart: no chest pain Lungs: no shortness of breath or cough GI: no diarrhea or vomiting/nausea Urinary: no urinary urgency, frequency or pain Neuro: no numbness or tingling HEM: no bleeding issues or bruising ENDO: no thyroid problems Psych: no anxiety or depression [facility] Medical History Meds Home Medications and Allergies Home Medications Medication Instructions Recorded Confirmed Type alprazolam 0.5 mg tablet 0.5 mg PO TID PRN anxiety 04/26/23 04/27/23 History amiodarone 200 mg tablet 200 mg PO DAILY 04/26/23 04/27/23 History apixaban 5 mg tablet (Eliquis) 5 mg PO BID 04/26/23 04/27/23 History atorvastatin 40 mg tablet 40 mg PO QPM 04/26/23 04/27/23 History buspirone 30 mg tablet 30 mg PO BID 04/26/23 04/27/23 History cholestyramine (with sugar) 4 gram 1 ea PO BID 04/26/23 04/27/23 History powder for susp in a packet diphenoxylate-atropine 2.5 1 tab PO Q6H PRN diarrhea 04/26/23 04/27/23 History mg-0.025 mg tablet famotidine 20 mg tablet 20 mg PO QPM 04/26/23 04/27/23 History furosemide 20 mg tablet 20 mg PO DAILY PRN edema 04/26/23 04/27/23 History insulin glargine 100 unit/mL (3 5 unit subcut QPM 04/26/23 04/27/23 History mL) subcutaneous pen (Lantus Solostar U-100 Insulin) levothyroxine 50 mcg tablet 50 mcg PO DAILY 04/26/23 04/27/23 History metoprolol tartrate 25 mg tablet 25 mg PO BID 04/26/23 04/27/23 History paroxetine HCl 30 mg tablet 30 mg PO DAILY 04/26/23 04/27/23 History potassium chloride 20 mEq 20 meq PO BID 04/26/23 04/27/23 History tablet,extended release(part/cryst) prednisone 50 mg tablet 50 mg PO DAILY 3 days #3 tabs 04/26/23 04/27/23 Rx pregabalin 100 mg capsule 100 mg PO BID 04/26/23 04/27/23 History quetiapine 100 mg tablet 100 mg PO QPM 04/26/23 04/27/23 History sucralfate 1 gram tablet 1 g PO Q6H 04/26/23 04/27/23 History tizanidine 4 mg tablet 4 mg PO Q8H PRN muscle spasticity 04/26/23 04/27/23 History trazodone 100 mg tablet 100 mg PO QPM 04/26/23 04/27/23 History Allergies Allergy/AdvReac Type Severity Reaction Status Date / Time No Known Drug Allergies Allergy Verified 04/26/23 23:48 Exam Narrative Exam Narrative: General: Patient is alert, and oriented to person, place Skin: no visible rashes, or ulcers Head: atraumatic, acephalic Eyes: PERRLA, no nystagmus present, conjunctiva clear, no scleral icterus Ears: normal gross auditory acuity Nose: symmetric, no discharge, no maxillary or frontal sinus tenderness Neck: no masses palpated, normal thyroid, no JVD or audible carotid bruits Heart: Normal rate and rhythm, no murmurs/rubs/gallops Lungs: no audible wheezes, crackles and normal breath sounds all lung todd Abdomen: Normal audible bowel sounds, no distension, large palpable ventral/incisional hernia present, reducible, no organomegaly, no rebound/guarding/ or rigidity Musculoskeletal: muscle atrophy noted, ROM is limited due to being in hospital bed, no swelling bilateral lower extremities Vascular: Normal carotid, radial, femoral, posterior tibial, and dorsalis pedis pulses Lymph: no supraclavicular, axillary, or anterior/posterior cervical adenopathy Neuro: CN II-X grossly intact, normal sensation upper and lower extremities Constitutional Vital Signs, click to edit/add: Last Vital Signs Temp 98.5 F 04/27/23 04:00 Pulse 59 L 04/27/23 04:00 Resp 14 04/27/23 04:00 BP 151/69 H 04/27/23 04:00 Pulse Ox 92 L 04/27/23 05:02 O2 Del Method Room Air 04/27/23 05:02 O2 Flow Rate 4 04/26/23 19:37 Results Labs Labs: Short CBC 04/26/23 Range/Units 18:45 WBC 7.4 (4.0-11.0) 10^3/uL Hgb 12.9 (12.0-16.0) g/dL Hct 39.3 (36.0-48.0) % Plt Count 242 (150-450) 10^3/uL BMP 04/26/23 04/27/23 18:45 04:00 Sodium 138 141 Potassium 3.1 L 3.3 L Chloride 104 104 Carbon Dioxide 26.5 27.7 BUN 17.0 17.0 Creatinine 1.61 H 1.54 H Glucose 105 120 H Calcium 8.0 L 8.4 L Cardiac Enzymes 04/26/23 04/27/23 Range/Units 21:06 04:00 Total Creatine Kinase 1143 H* 947 H* (26-192) U/L CK-MB (CK-2) 13.71 H* (<=3.60) ng/mL Liver Function 04/26/23 04/27/23 Range/Units 18:45 04:00 Total Bilirubin 0.6 0.5 (0.2-1.0) mg/dL AST 116 H 107 H (15-37) U/L ALT 167 H 164 H (14-59) U/L Alkaline Phosphatase 148 H 150 H (46-116) U/L Albumin 3.5 3.6 (3.4-5.0) g/dL ABG ABG results: 04/27/23 02:05 ABG pH 7.340 L ABG pCO2 52.8 H* ABG pO2 47.7 L ABG HCO3 28.5 H ABG O2 Saturation 79.0 ABG Base Excess 2.7 H Assessment and Plan Assessment and Plan (1) Benzodiazepine causing adverse effect in therapeutic use: Assessment and Plan: this can be contributing to patient's altered mental status, urine drug screen was positive for benzodiazepines. Patient seems to be more alert this morning. Could be more metabolic reasons. Urinalysis was not performed and will check this and continue monitoring for any positive cultures. (2) Acute on chronic respiratory failure: Assessment and Plan: per review of charts and patient history she states that she has has oxygen at home but is uncertain as to how much and if she is to wear this continuously at nighttime. She does have underlying chronic obstructive pulmonary disease. Will place on DuoNeb's and Symbicort. Right oxygen as needed and monitor for any signs of distress. (3) Altered mental status: Assessment and Plan: continue with infectious workup and a CT scan of the chest and abdomen have been ordered (4) Acute kidney injury: Assessment and Plan: continuous fluid hydration and check urinalysis, CAT scan (5) Rhabdomyolysis: Assessment and Plan: will repeat creatinine kinase levels could be from statin medications, provide IV fluids (6) Elevated troponin: Assessment and Plan: is coming back down, no EKG changes, patient was placed on telemetry most likely type II and STEMI secondary to chronic obstructive pulmonary disease. (7) Elevated liver enzymes: Assessment and Plan: alkaline phosphatase also elevated will check CT of abdomen, patient had a cholecystectomy and on CT did show dilation of common bile duct will attempt to get an MRCP because of the elevation in lab functions. (8) Hypokalemia: Assessment and Plan: check daily and replace as needed, CT scan shows evidence of possible diarrhea, this could be why patient has low potassium levels (9) High cholesterol: Assessment and Plan: hold statin secondary to rhabdomyolysis (10) Hypertension: Assessment and Plan: monitor, will resume home medications (11) Diabetes: Assessment and Plan: siding scale insulin as needed, check every before meals daily at bedtime F SPS (12) Hypothyroidism: Assessment and Plan: will adjust medication strength once home medications are verified (13) Atrial fibrillation with controlled ventricular rate: Assessment and Plan: continue Eliquis, rate controlled. Plan patient is a full code continue Eliquis for dvt prophylaxis patient is inpatient status and is expected to stay several days given her current condition/severity
--- NOTE | 2023-04-27 10:26 | CM.NOTE ---
Rounds made with Dr. Perez. Plan for additional testing today-CT chest, abd/pelvis. Roselyn was able to verbalize where she was and her date. No plan for discharge today.
--- NOTE | 2023-04-27 10:28 | SWNOTE1 ---
SW met with pt to discuss dc need. Pt does live at home by herself. Pt uses a walker at home to get around. SW to check on her home oxygen company. Pt was alert and oriented x3 during conversation. Pt's sister comes over to her house to help. SW did speak to pt's sister yesterday on phone and pt's sister voiced she has her own medical issues and has a hard time getting over to pt's house. Pt's sister also voiced concerns about pt over taking her Xanax. SW expressed to pt's sister yesterday that pt would benefit from pill box. Pt's sister also thinking of calling Adult Protective Services as well. Pt and SW spoke about her medications. Pt did admit that she sometimes forgets when she takes her meds, so she just takes another one. SW recommended to pt that she does get a pill box. SW also asked her about her smoking and falling asleep with cigarette in hand, pt does admit to this. SW let her know the dangers of both. Pt voiced she has good friends and neighbors that keep an eye out on her. SW spoke with pt about home health coming in, possibly just a nurse to help with medication management. PT/OT will also eval pt as well. Pt is agreeable. SW to come back after pt eats breakfast.
--- NOTE | 2023-04-27 11:42 | SWNOTE1 ---
SW met with pt again to review Important Message from Medicare, pt voiced understanding, no questions or concerns at this time. Pt signed form, original given to pt and copy placed in chart. SW did discuss her home oxygen, she did state she wears 2 liters at home, she thinks from [employer] ([employer] SW also spoke to her again about HH and offered her a list from medicare.gov with star ratings, but pt did not have a preference. SW was able to look back at previous visits and she had [facility] CHERISE to see if they can accept again. SW also clarified with pt that she is not intentionally overdosing on her medication. SW asked pt if she had any intentions of harming herself. She stated no way. SW advised pt to also not smoke with her oxygen. SW sending referral to [facility].
--- NOTE | 2023-04-27 11:58 | SWNOTE1 ---
SW called [facility] and she does not get it through them. SW called and left message for [facility].
[2023-04-27 12:00] LABS: Glucometer 116 mg/dL (74-106)
--- NOTE | 2023-04-27 13:10 | SWNOTE1 ---
SW called [facility], and they have not seen pt since 2011.
--- NOTE | 2023-04-27 13:17 | SWNOTE1 ---
SW called [facility] and they do not supply oxygen to patient. SW to call PCP to check if they can see who oxygen is through.
--- NOTE | 2023-04-27 13:19 | SWNOTE1 ---
CHERISE left message for nurse at Dr. Vyas's office.
--- NOTE | 2023-04-27 13:45 | MR_ITS ---
[address] [address] Patient Name: JELENA RAMIREZ MRN: [id number] date: 1955 Sex: F Assigned Patient Location: ICU Current Patient Location: ICU Accession/Order Number: [id number] Exam Date: 04/27/2023 13:45 Report Date: 04/27/2023 14:52 At the request of: PIPER JAMES Procedure: MR abdomen wo con EXAM: MR abdomen wo con CLINICAL INFORMATION: 67 [address] results, dilated CBD, elevated LFT s TECHNIQUE: Multiple coronal and two 15 degree coronal oblique single shot heavily T2 weighted images. Coronal heavily weighted 3D T2 weighted images. Axial in and out of phase, axial diffusion, axial T2 and thin section axial T2 weighted images of the pancreas. Axial T1 gradient echo images before gadolinium administration. COMPARISON: 04/27/2023 FINDINGS: LIVER: Normal signal intensity. No hepatic steatosis. Mild intrahepatic biliary dilation, likely postcholecystectomy changes. GALLBLADDER: Status post cholecystectomy. COMMON BILE DUCT: Mildly dilated common bile duct measuring up to 1.3 cm which tapers towards the ampulla, likely postcholecystectomy change. No choledocholithiasis. PANCREAS: Normal signal intensity. No evidence of stranding or increased T2 signal surrounding the pancreas.. No pancreatic ductal dilation. OTHER: Spleen, adrenal glands, and kidneys are unremarkable. Visualized bowel demonstrates no evidence of obstruction or inflammation. There is a small ventral hernia, containing a short segment of the mildly distended transverse colon. No lymphadenopathy. Vascular structures are unremarkable. Normal bone marrow signal intensity. MR/MR abdomen wo con IMPRESSION: Mild intra and extrahepatic ductal dilatation, likely postcholecystectomy changes. No choledocholithiasis. Electronically authenticated by: OLGA LIDIA NEELY Date: 04/27/2023 14:52
--- NOTE | 2023-04-27 14:30 | SWNOTE1 ---
Dr. Vyas's office did not supply oxygen, they recommended calling a jigger artisan out of [facility]. SW called and they have not seen her since February 2022 and they have no prescribed oxygen. SW called pt's sister and she does not think she has home oxygen. At this time SW to let doctor know that pt likely does not have home oxygen. While talking to sister she explained to SW again about concerns for pt's safety and that pt continues to overdose on her medications. Pt's sister stated that it should be reported and she does not understand why nobody has reported the doctor for continuing to dispense the xanax. Pt's sister also stated she called Adult Protective Services last night, but they got cut off and then the police came out to the home and now pt is here at hospital. Pt's sister voiced she cannot do anything because pt has a daughter/son and it would be up to them. Pt's sister voiced that her children do not want anything to do with her as she had a previous history of drug use and took advantage of her children. Pt's sister also told SW that pt has been through a lot and she is the only family she has left. SW also let pt's sister know that pt was alert and oriented this morning and can make her own decisions, which affects pt's sister being able to make decisions as well. SW did let pt's sister know SW is attempting to set up pt with home health. Pt's sister appreciative. Pt's sister and sister's do NOT think she has home oxygen at this time. SW to let doctor know.
[2023-04-27 14:45] LABS: Bilirubin Urine NEGATIVE (NEGATIVE); Blood Urine TRACE-I (NEGATIVE); Clarity Urine CLEAR (CLEAR); Color Urine YELLOW (YELLOW); Glucose Urine UA NEGATIVE (NEGATIVE); Ketones Urine NEGATIVE (NEGATIVE); Leukocyte Esterase Urine TRACE (NEGATIVE); Nitrite Urine POSITIVE (NEGATIVE); Protein Urine 30 mg/dL (NEG/TRACE); Specific Gravity Urine 1.025 (1.005-1.025); Urobilinogen Urine 0.2 EU/dL (0.2-1.0)
[2023-04-27 14:53] LABS: Urine Microscopic Indicated YES
[2023-04-27 14:57] LABS: Bacteria Urine LARGE #/HPF (NONE SEEN); Mucus Urine NONE SEEN (NONE SEEN); Squamous Epithelial Cell Urine MODERATE #/LPF (NONE/RARE); WBC Urine 20-50 #/HPF (NONE SEEN)
[2023-04-27 14:58] LABS: Urine Culture Indicated YES
[2023-04-27 15:00] LABS: Amphetamine Screen Urine NEGATIVE (NEGATIVE); Barbiturates Screen Urine NEGATIVE (NEGATIVE); Benzodiazepines Screen Urine POSITIVE (NEGATIVE); Buprenorphine Screen Urine NEGATIVE (NEGATIVE); Cannabinoid Screen Urine NEGATIVE (NEGATIVE); Cocaine Screen Urine NEGATIVE (NEGATIVE); Methadone Screen Urine NEGATIVE (NEGATIVE); Methamphetamines Screen Urine NEGATIVE (NEGATIVE); Opiate Screen Urine NEGATIVE (NEGATIVE); Oxycodone Screen Urine NEGATIVE (NEGATIVE); Phencyclidine Screen Urine NEGATIVE (NEGATIVE); Tricyclic Antidepressant Urine NEGATIVE (NEGATIVE)
[2023-04-27] MEDS: IPRATROPIUM/ALBUTEROL SULFATE 3 ML AMPUL.NEB IH ×2 (15:14→20:44)
--- NOTE | 2023-04-27 15:20 | SWNOTE1 ---
[facility] is not able to accept. CHERISE sent referral to [address] CHERISE also called [facility] in [place] and they stated she gets oxygen from [facility]. CHERISE called [facility] back and they stated she is in there system but she does not get any oxygen from them. At this time CHERISE is unsure if pt has home O2 or not.
--- NOTE | 2023-04-27 15:42 | SWNOTE1 ---
After several phone calls to [employer] in regards to home oxygen and after having another conversation with pt, SW has found pt does NOT have home oxygen. She did voice she used to, but does not anymore. She stated she has inhalers and nebulizers but no oxygen. CHERISE spoke with nursing and sent message to doctor.
[2023-04-27 16:51] LABS: Glucometer 231 mg/dL (74-106)
[2023-04-27] MEDS: SUCRALFATE 1 GM TABLET PO ×2 (16:54→21:31)
[2023-04-27] MEDS: INSULIN ASPART 300 UNIT/3 ML PEN SUBQ (16:55)
[2023-04-27] MEDS: QUETIAPINE FUMARATE 100 MG TABLET PO (20:35)
[2023-04-27] MEDS: ACETAMINOPHEN 325 MG TABLET 650 MG PO (20:38)
[2023-04-27] MEDS: BUDESONIDE 0.5 MG/2 ML AMPULE NEB 1 MG IH (20:44)
[2023-04-27] MEDS: BUSPIRONE HCL 15 MG TABLET 30 MG PO (21:24)
[2023-04-27] MEDS: POTASSIUM CHLORIDE 10 MEQ ER TABLET 20 MEQ PO (21:24)
[2023-04-27] MEDS: METOPROLOL TARTRATE 25 MG TABLET PO (21:24)
[2023-04-27] MEDS: APIXABAN 5 MG TABLET PO (21:24)
[2023-04-27] MEDS: CHOLESTYRAMINE PO (21:25)
[2023-04-27] MEDS: [UNRECOGNIZED DRUG - OTHER] PO (21:25)
[2023-04-27 21:35] LABS: Glucometer 123 mg/dL (74-106)
[2023-04-28] VITALS (26 sets, daily range): BP systolic 153–170; BP diastolic 73–78; PULSE 52–76; RESP 8–19; TEMP 36.7–36.8; O2SAT 94–97
[2023-04-28] MEDS: SUCRALFATE 1 GM TABLET PO ×2 (03:32→10:13)
[2023-04-28] MEDS: NICOTINE 21 MG PATCH TD (03:32)
[2023-04-28] MEDS: IPRATROPIUM/ALBUTEROL SULFATE 3 ML AMPUL.NEB IH ×2 (04:54→11:03)
[2023-04-28 05:10] LABS: Basophils Percent Auto 0.6 % (0.2-2.0); Eosinophils Absolute Auto 0.1 10^3/uL (0.0-0.7); Eosinophils Percent Auto 1.7 % (0.9-7.0); Hematocrit 36.7 % (36.0-48.0); Hemoglobin 11.7 g/dL (12.0-16.0); Immature Granulocytes Abs Auto 0.01 10^3/uL (0.00-0.03); Immature Granulocytes Pct Auto 0.2 % (0.0-0.5); Lymphocytes Absolute Auto 2.4 10^3/uL (1.2-3.8); Mean Corpuscular HGB Conc 31.9 g/dL (29.9-35.2); Mean Corpuscular Hemoglobin 30.6 pg (26.7-34.0); Mean Corpuscular Volume 96.1 fL (81.0-99.0); Mean Platelet Volume 10.7 fL (9.5-13.5); Monocytes Absolute Auto 0.4 10^3/uL (0.3-0.8); Monocytes Percent Auto 7.8 % (1.7-12.0); Neutrophils Absolute Auto 2.4 10^3/uL (1.4-6.5); Neutrophils Percent Auto 44.7 % (43.0-75.0); Platelet Count 204 10^3/uL (150-450); Red Blood Count 3.82 10^6/uL (4.20-5.40); Red Cell Distribution Width 15.1 % (11.0-15.0); White Blood Count 5.3 10^3/uL (4.0-11.0)
[2023-04-28 05:54] LABS: Alanine Aminotransferase 87 U/L (14-59); Albumin Level 2.9 g/dL (3.4-5.0); Alkaline Phosphatase 98 U/L (46-116); Aspartate Amino Transferase 48 U/L (15-37); BUN Creatinine Ratio 17.3; Bilirubin Total 0.3 mg/dL (0.2-1.0); Calcium 7.9 mg/dL (8.5-10.1); Carbon Dioxide 25.7 mmol/L (21.0-32.0); Chloride 113 mmol/L (98-107); Estimated GFR (African America >60 (>=60); Estimated GFR (Non-African Ame 50 (>=60); Globulin 2.9 g/dL; Glucose 132 mg/dL (74-106); Potassium 3.7 mmol/L (3.5-5.1); Sodium 145 mmol/L (136-145); Total Protein 5.8 g/dL (6.4-8.2)
[2023-04-28 06:04] LABS: Creatine Kinase 548 U/L (26-192)
[2023-04-28] MEDS: LEVOTHYROXINE SODIUM 25 MCG TABLET 50 MCG PO (06:43)
[2023-04-28] MEDS: 0.9 % SODIUM CHLORIDE 1,000 ML 100 ML IV (06:49)
--- NOTE | 2023-04-28 06:54 | PC.NURSE ---
Patient complains of left shoulder pain this morning. Now stating it is a 10/10. Moans, groans, grimaces and holds onto left shoulder/arm with her right hand. Patient states she fell approximately 1 week ago. States she was told as an outpatient that she needed to get an xray of the left shoulder, States she did not obtain the xray. Previously medicated with Tylenol and patient states it did not help with her pain in the left arm.
[2023-04-28] MEDS: [UNRECOGNIZED DRUG - OTHER] PO (08:01)
[2023-04-28] MEDS: PAROXETINE HCL 20 MG TABLET 30 MG PO (08:01)
[2023-04-28] MEDS: CHOLESTYRAMINE PO (08:01)
[2023-04-28] MEDS: AMIODARONE HCL 200 MG TABLET PO (08:01)
[2023-04-28] MEDS: APIXABAN 5 MG TABLET PO (08:02)
[2023-04-28] MEDS: BUSPIRONE HCL 15 MG TABLET 30 MG PO (08:02)
[2023-04-28] MEDS: POTASSIUM CHLORIDE 10 MEQ ER TABLET 20 MEQ PO (08:02)
[2023-04-28] MEDS: METOPROLOL TARTRATE 25 MG TABLET PO (08:02)
--- NOTE | 2023-04-28 08:27 | SWNOTE1 ---
[facility] is not able to accept. SW sent referral to [facility] .
--- NOTE | 2023-04-28 08:29 | P.PN_ITS ---
Progress Note: Subjective Subjective Interval history: Patient is a 67-year-old female with history of COPD, hypothyroid, HTN, chronic A-fib on Eliquis, and HLD presenting with decreased responsiveness. Patient was seen in the ER yesterday afternoon for similar decreased responsiveness and it was reported that sister had expressed concern that patient may be taking more Xanax than she should be. Patient does live alone and reportedly takes Xanax 0.5 mg 3 times daily along with trazodone, tizanidine, and quetiapine. Per medical records, sisters concern the patient may be over medicated and may have excellently taken too much Xanax, although patient is denying at present time stating that she only takes it twice a day. When seen in the ER earlier yesterday afternoon, she did have a negative work-up including normal ABG, negative CXR. She was treated with nebs treatment and discharged on prednisone for a cough after being seen by secondary social studies teacher. Patient returned back to the ER yesterday evening approximately 4 to 5 hours after being discharged earlier in the day and was brought in by ambulance again for decreased responsiveness. Upon arrival to the ED, vital signs noted for BP 172/84, afebrile and initially noted 86% O2 RA which did improve to 95% on 2 L. Labs significant for K3.1, creatinine 1.61 from 1.96 earlier in the day which was previously normal in January. AST peaked at 174 yesterday, ALT 208, normal alk phos and total bilirubin. CK 1143, CK-MB 13.71, troponin 72.9 from 46 earlier in the day., And TSH 8.379. Rest of labs within normal limits including normal CBC, D-dimer, lactic acid, Tylenol, aspirin, and alcohol level negative. CXR and CT brain negative for acute findings. EKG NSR with nonspecific ST and T changes, rate [address] elevations. Patient is being admitted to the ICU for further work-up given altered state. History is primarily obtained via review of medical records and discussion with the ER physician. Patient is a poor historian. She initially did not answer any questions but after auscultation, reattempt made to obtain history and patie nt is only a little more awake but still minimally conversive, now knows that she is at [facility] and states the year is 2021. Per ED, patient was also a poor historian with provider and nursing staff both in the ER and on the floor but reportedly was more conversive and engaging in conversation with umbrella mender therefore there was some question if possible behavioral component to her altered state as well. Exam Constitutional Vital Signs, click to edit/add: Last Vital Signs Temp 98.0 F 04/28/23 08:00 Pulse 61 04/28/23 08:00 Resp 16 04/28/23 08:00 BP 170/73 H 04/28/23 08:00 Pulse Ox 97 04/28/23 08:00 O2 Del Method Room Air 04/28/23 08:00 O2 Flow Rate 2 04/27/23 12:00 Progress Note: Objective Labs Labs: Short CBC 04/28/23 Range/Units 03:59 WBC 5.3 (4.0-11.0) 10^3/uL Hgb 11.7 L (12.0-16.0) g/dL Hct 36.7 (36.0-48.0) % Plt Count 204 (150-450) 10^3/uL BMP 04/28/23 03:59 Sodium 145 Potassium 3.7 Chloride 113 H Carbon Dioxide 25.7 BUN 19.0 H Creatinine 1.10 H Glucose 132 H Calcium 7.9 L Cardiac Enzymes 04/28/23 Range/Units 03:59 Total Creatine Kinase 548 H* (26-192) U/L Liver Function 04/28/23 Range/Units 03:59 Total Bilirubin 0.3 (0.2-1.0) mg/dL AST 48 H (15-37) U/L ALT 87 H (14-59) U/L Alkaline Phosphatase 98 (46-116) U/L Albumin 2.9 L (3.4-5.0) g/dL Urine 04/26/23 Range/Units 13:40 Urine Color Yellow (YELLOW) Urine Clarity Clear (CLEAR) Urine pH 6.0 (5.0-9.0) Ur Specific [place] 1.025 (1.005-1.025) Urine Protein 30 A (NEG/TRACE) mg/dL Urine Glucose (UA) Negative (NEGATIVE) mg/dL Progress Note: A&P Assessment and Plan (1) Benzodiazepine causing adverse effect in therapeutic use: (2) Acute on chronic respiratory failure: (3) Altered mental status: (4) Acute kidney injury: (5) Rhabdomyolysis: (6) Elevated troponin: (7) Elevated liver enzymes: (8) Hypokalemia: (9) High cholesterol: (10) Hypertension: (11) Diabetes: (12) Hypothyroidism: (13) Atrial fibrillation with controlled ventricular rate:
[2023-04-28] MEDS: CEFTRIAXONE 2,000 MG in 0.9 % SODIUM CHLORIDE 100 ML 200 MG IV (09:47)
--- NOTE | 2023-04-28 10:16 | SWNOTE1 ---
SW sent referral for HH to [facility] and [facility]. [facility] called back and they can accept, but can't see pt until Monday, SW waiting to hear back from [facility].
--- NOTE | 2023-04-28 10:36 | CM.NOTE ---
Rounds made with cristobal Michaels for discharge to home today. SW working on setting up .
--- NOTE | 2023-04-28 10:38 | SWNOTE1 ---
[facility] is not able to see pt until May 03 either. SW let doctor know, waiting to hear back.
[2023-04-28] MEDS: BUDESONIDE 0.5 MG/2 ML AMPULE NEB IH (11:08)
--- NOTE | 2023-04-28 11:13 | P.DS_ITS ---
DS: Providers Provider Date of admission: 04/26/23 22:23 Primary care physician: Aj Vyas MD Admitting clinician: Ilana Perez Consults: 04/27/23 Consult to [facility] Routine Reason for consult:: Home Health 04/27/23 12:28 Occupational Therapy Eval and Treat Routine Reason for consultation: weakness Has provider been notified: No Physical Therapy Eval and Treat Routine Reason for consultation: weakness Has provider been notified: No Discharging clinician: Ilana Perez DS: Diagnosis Discharge Diagnosis (1) Benzodiazepine causing adverse effect in therapeutic use: (2) Acute on chronic respiratory failure: (3) Altered mental status: (4) Acute kidney injury: (5) Rhabdomyolysis: (6) Elevated troponin: (7) Elevated liver enzymes: (8) Hypokalemia: (9) High cholesterol: (10) Hypertension: (11) Diabetes: (12) Hypothyroidism: (13) Atrial fibrillation with controlled ventricular rate: DS: Summary Hospital Course Hospital Course: (1) Benzodiazepine causing adverse effect in therapeutic use: Assessment and Plan: this can be contributing to patient's altered mental status, urine drug screen was positive for benzodiazepines. patient is back to baseline this morning. Encourage her to stop taking this. (2) Acute on chronic respiratory failure: Assessment and Plan: She does have underlying chronic obstructive pulmonary disease. Continue albuterol and symbicort at home. No need for home oxygen (3) Altered mental status: Assessment and Plan: improved at the time of discharge. (4) Acute kidney injury: Assessment and Plan: UTI positive, no evidence of stones on CT scan. Will treat with outpatient macrobid 100mg x 1 week (5) Rhabdomyolysis: Assessment and Plan: repeat creatinine kinase levels could be from statin medications, IVF improved, will hold home statin for a 1 week, recheck CK level (6) Elevated troponin: Assessment and Plan: is coming back down, no EKG changes, type II and STEMI secondary to chronic obstructive pulmonary disease. (7) Elevated liver enzymes: Assessment and Plan: alkaline phosphatase also elevated will check CT of abdomen, patient had a cholecystectomy and on CT did show dilation of common , MRCP was normal. improving with IVF. will need recheck cmp in 1 week. (8) Hypokalemia: Assessment and Plan: check daily and replace as needed, CT scan shows evidence of possible diarrhea, this could be why patient has low potassium levels (9) High cholesterol: Assessment and Plan: hold statin secondary to rhabdomyolysis (10) Hypertension: Assessment and Plan: monitor, will resume home medications (11) Diabetes: Assessment and Plan: resume home medications (12) Hypothyroidism: Assessment and Plan: recheck thyroid studies in 1 week. (13) Atrial fibrillation with controlled ventricular rate: Assessment and Plan: continue Eliquis, rate controlled. Status at Discharge Overall status at discharge: patient is back to baseline Time Spent with Patient Time attestation: Total time spent providing and/or coordinating discharge services: Time spent: greater than 30 minutes Exam Narrative Exam Narrative: General: Patient is alert, and oriented to person, place Skin: no visible rashes, or ulcers Head: atraumatic, acephalic Eyes: PERRLA, no nystagmus present, conjunctiva clear, no scleral icterus Ears: normal gross auditory acuity Nose: symmetric, no discharge, no maxillary or frontal sinus tenderness Neck: no masses palpated, normal thyroid, no JVD or audible carotid bruits Heart: Normal rate and rhythm, no murmurs/rubs/gallops Lungs: no audible wheezes, crackles and normal breath sounds all lung todd Abdomen: Normal audible bowel sounds, no distension, large palpable ventral/incisional hernia present, reducible, no organomegaly, no rebound/guarding/ or rigidity Musculoskeletal: muscle atrophy noted, ROM is limited due to being in hospital bed, no swelling bilateral lower extremities Vascular: Normal carotid, radial, femoral, posterior tibial, and dorsalis pedis pulses Lymph: no supraclavicular, axillary, or anterior/posterior cervical adenopathy Neuro: CN II-X grossly intact, normal sensation upper and lower extremities Constitutional Vital Signs, click to edit/add: Last Vital Signs Temp 98.0 F 04/28/23 10:03 Pulse 64 04/28/23 11:00 Resp 16 04/28/23 11:00 BP 170/73 H 04/28/23 08:00 Pulse Ox 94 L 04/28/23 11:06 O2 Del Method Room Air 04/28/23 11:06 O2 Flow Rate 2 04/27/23 12:00 DS: Data Data Completed and Pending Labs on day of discharge: Labs from last 24 hours 04/28/23 04/27/23 04/27/23 03:59 21:30 16:49 WBC 5.3 RBC 3.82 L Hgb 11.7 L Hct 36.7 MCV 96.1 MCH 30.6 MCHC 31.9 RDW 15.1 H Plt Count 204 MPV 10.7 Neut % (Auto) 44.7 Lymph % (Auto) 45.0 [place] % (Auto) 7.8 Eos % (Auto) 1.7 Baso % (Auto) 0.6 Neut # (Auto) 2.4 Lymph # (Auto) 2.4 [place] # (Auto) 0.4 Eos # (Auto) 0.1 Baso # (Auto) 0.0 Abs Immat Gran (auto) 0.01 Imm/Tot Granulo (auto) 0.2 Sodium 145 Potassium 3.7 Chloride 113 H Carbon Dioxide 25.7 Anion Gap 10.0 BUN 19.0 H Creatinine 1.10 H Est GFR ( Amer) >60 Est GFR (Non-Af Amer) 50 L BUN/Creatinine Ratio 17.3 Glucose 132 H Calcium 7.9 L Total Bilirubin 0.3 AST 48 H ALT 87 H Alkaline Phosphatase 98 Total Creatine Kinase 548 H* Total Protein 5.8 L Albumin 2.9 L Globulin 2.9 Albumin/Globulin Ratio 1.0 Urine Color Urine Clarity Urine pH Ur Specific [place] Urine Protein Urine Glucose (UA) Urine Ketones Urine Occult Blood Urine Nitrite Urine Bilirubin Urine Urobilinogen Ur Leukocyte Esterase Urine RBC Urine WBC Ur Squamous Epith Cells Urine Bacteria Urine Mucus Ur Culture Indicated? Urine Opiates Screen Ur Buprenorphine Scrn Ur Oxycodone Screen Urine Methadone Screen Ur Propoxyphene Screen Ur Barbiturates Screen U Tricyclic Antidepress Ur Phencyclidine Scrn Ur Amphetamines Screen U Methamphetamines Scrn U Benzodiazepines Scrn Urine Cocaine Screen U Cannabinoids Screen POC Glucose 123 H 231 H 04/27/23 04/27/23 04/26/23 13:40 11:59 13:40 WBC RBC Hgb Hct MCV MCH MCHC RDW Plt Count MPV Neut % (Auto) Lymph % (Auto) [place] % (Auto) Eos % (Auto) Baso % (Auto) Neut # (Auto) Lymph # (Auto) [place] # (Auto) Eos # (Auto) Baso # (Auto) Abs Immat Gran (auto) Imm/Tot Granulo (auto) Sodium Potassium Chloride Carbon Dioxide Anion Gap BUN Creatinine Est GFR ( Amer) Est GFR (Non-Af Amer) BUN/Creatinine Ratio Glucose Calcium Total Bilirubin AST ALT Alkaline Phosphatase Total Creatine Kinase Total Protein Albumin Globulin Albumin/Globulin Ratio Urine Color Yellow Urine Clarity Clear Urine pH 6.0 Ur Specific [place] 1.025 Urine Protein 30 A Urine Glucose (UA) Negative Urine Ketones Negative Urine Occult Blood Trace-i Urine Nitrite Positive A Urine Bilirubin Negative Urine Urobilinogen 0.2 Ur Leukocyte Esterase Trace A Urine RBC 10-20 A Urine WBC 20-50 A Ur Squamous Epith Cells Moderate A Urine Bacteria Large A Urine Mucus None seen Ur Culture Indicated? Yes Urine Opiates Screen Negative Ur Buprenorphine Scrn Negative Ur Oxycodone Screen Negative Urine Methadone Screen Negative Ur Propoxyphene Screen Negative Ur Barbiturates Screen Negative U Tricyclic Antidepress Negative Ur Phencyclidine Scrn Negative Ur Amphetamines Screen Negative U Methamphetamines Scrn Negative U Benzodiazepines Scrn Positive A Urine Cocaine Screen Negative U Cannabinoids Screen Negative POC Glucose 116 H Preliminary micro results at discharge 04/26/23 18:54 - Preliminary Blood 04/26/23 18:45 Blood Culture Result 1 - Preliminary Blood 04/26/23 13:40 Urine Culture - Preliminary Urine,Clean Catch Escherichia coli Discharge Plan Discharge Disposition: Home Health Service Condition: Fair Discharge Medications: New nitrofurantoin monohyd/m-cryst [Macrobid] 100 mg capsule 100 mg PO BID 7 Days Qty: 14 0RF Rx Instructions: must administer with a meal/food Continued amiodarone 200 mg tablet 200 mg PO DAILY Eliquis 5 mg tablet 5 mg PO BID buspirone 30 mg tablet 30 mg PO BID cholestyramine (with sugar) 4 gram powder in packet 1 ea PO BID diphenoxylate-atropine 2.5-0.025 mg tablet 1 tab PO Q6H PRN (Reason: diarrhea) famotidine 20 mg tablet 20 mg PO QPM furosemide 20 mg tablet 20 mg PO DAILY PRN (Reason: edema) insulin glargine [Lantus Solostar U-100 Insulin] 100 unit/mL (3 mL) insulin pen 5 unit SUBCUT QPM metoprolol tartrate 25 mg tablet 25 mg PO BID paroxetine HCl 30 mg tablet 30 mg PO DAILY potassium chloride 20 mEq tablet,ER particles/crystals 20 meq PO BID pregabalin 100 mg capsule 100 mg PO BID quetiapine 100 mg tablet 100 mg PO QPM sucralfate 1 gram tablet 1 g PO Q6H tizanidine 4 mg tablet 4 mg PO Q8H PRN (Reason: muscle spasticity) trazodone 100 mg tablet 100 mg PO QPM prednisone 50 mg tablet 50 mg PO DAILY 3 Days Qty: 3 0RF Patient Comments: FOR 3 DAYS UNTIL 04/29/23 Changed levothyroxine 50 mcg tablet 75 mcg PO DAILY 30 Days Qty: 45 0RF Held atorvastatin 40 mg tablet 40 mg PO QPM Hold Instructions: Resume on 05/05/23. will need repeat labs, ck level prior to restarting by pcp Discontinued alprazolam 0.5 mg tablet 0.5 mg PO TID PRN (Reason: anxiety) Activity: ambulate only with your walker, increase activity as tolerated and resume usual activities as tolerated Diet: advance to your usual diet Patient Instructions: Nitrofurantoin Combination (By mouth) (Macrobid) Forms: Portal Instructions Follow Up Appointments: May [address] Vyas Discharge location: Home with home health
--- NOTE | 2023-04-28 11:16 | SWNOTE1 ---
Doctor did get back to CHERISE and ok for HH to come May 03. Pt is going home with [facility], nurse coming in. They will not be able to see her until May 03. CHERISE sent dc orders to [facility] and let pt know they will be there Monday to see her. Pt does not have a ride home. CHERISE called and set up trips, they will be here between 11:45-12:15. CHERISE let nursing know.
--- NOTE | 2023-05-02 10:36 | CM.DCFOLLOWU ---
First attempt at discharge follow up call 05/02 at number [phone], unable to get through via this number at this time.
== END 2023-04-28 12:06 | disposition home health service (06) | DRG 947 ==
LOC: ER 22:11 → ICU 04-27 00:06
PROVIDERS: Internal Medicine; Physician Assistant; Admitting Provider Family Medicine; Emergency Provider Emergency Medicine; PCP Family Medicine; Visit Provider Family Medicine
DX: R41.82 Altered mental status, unspecified (principal); I21.A1 Myocardial infarction type 2; J96.21 Acute and chronic respiratory failure with hypoxia; N17.9 Acute kidney failure, unspecified; M62.82 Rhabdomyolysis; I48.20 Chronic atrial fibrillation, unspecified; N39.0 Urinary tract infection, site not specified; T42.4X5A Adverse effect of benzodiazepines, initial encounter; Y92.009 Unspecified place in unspecified non-institutional (private) residence as the place of occurrence of the external cause; R77.8 Other specified abnormalities of plasma proteins; R74.01 Elevation of levels of liver transaminase levels; E87.6 Hypokalemia; E78.00 Pure hypercholesterolemia, unspecified; I10 Essential (primary) hypertension; E11.9 Type 2 diabetes mellitus without complications; E03.9 Hypothyroidism, unspecified; J44.9 Chronic obstructive pulmonary disease, unspecified; Z79.01 Long term (current) use of anticoagulants; Z79.890 Hormone replacement therapy; Z79.4 Long term (current) use of insulin; Z79.899 Other long term (current) drug therapy; Z90.49 Acquired absence of other specified parts of digestive tract; Z99.81 Dependence on supplemental oxygen
CPT/HCPCS: 36415; 36600; 70450; 71250; 74176; 74181; 80053; 80179; 80307; 80320; 80329; 81001; 82140; 82550; 82553; 82805; 82948; 83605; 83735; 84443; 84484; 85025; 85378; 87040; 87070; 87086; 87150; 87186; 87205; 93005; 94640; 94667; 94668; 94761; 96361; 96365; 97161; 99285